=== PATIENT | female | born 1935 | race Caucasian/White ===

== ENCOUNTER 2021-03-31 18:04 | Emergency (ER) | payer MEDICARE, BC ==
[2021-03-31] MEDS ORDERED: Ondansetron 4 MG Tab.DIS PO ONE (18:05)
[2021-03-31] MEDS ORDERED: Sodium Chloride 0.9% 1,000 ML IV ONE (19:14)
[2021-03-31] MEDS ORDERED: Ondansetron 4 MG/2 ML SDV IVPUSH ONE (19:14)
[2021-03-31 19:45] LABS: CORONAVIRUS COVID-19 NAA NEGATIVE (NEGATIVE)
[2021-03-31 20:11] LABS: ANION GAP 14.8 mEq/L (7-13)
[2021-03-31] MEDS ORDERED: Iopamidol 612 MG/ML 100 ML Bottle IVPUSH ONE (20:18)
[2021-03-31] MEDS ORDERED: Loperamide 2 MG Cap PO ONE (21:40)
[2021-03-31] MEDS ORDERED: Carvedilol 6.25 MG Tab PO ONE (22:21)
[2021-03-31] MEDS ORDERED: lamoTRIgine 100 MG Tab PO ONE (22:24)
[2021-03-31] MEDS ORDERED: Ondansetron 4 MG Tab.DIS ONE (23:00)
== END 2021-03-31 22:50 | disposition home or self-care (01) ==
LOC: DL.ED 18:04
DX: K52.9 Noninfective gastroenteritis and colitis, unspecified (principal); R11.14 Bilious vomiting; E78.00 Pure hypercholesterolemia, unspecified; I10 Essential (primary) hypertension; E03.9 Hypothyroidism, unspecified; Z88.5 Allergy status to narcotic agent; Z79.899 Other long term (current) drug therapy; Z20.822 Contact with and (suspected) exposure to COVID-19
CPT/HCPCS: 0240U; 36415; 74177; 80053; 82150; 82272; 83605; 83690; 83735; 83880; 85025; 85610; 87040; 93005; 96374; 99284-25; A9270-GY; J2405; J7030; Q9967

== ENCOUNTER 2022-12-14 07:02 | Day surgery (SDC) | payer MEDICARE, BC ==
[~2022-12-14 07:02] MED LIST: Acetaminophen 325 MG Tab PO PRN; Acetaminophen/Codeine 300-30 MG Tab PO PRN; Cataract Ophth Solution EYELF ONE; Moxifloxacin 0.5% Ophth Soln 3 ML Bottle EYELF ONE; Ondansetron 4 MG/2 ML SDV IVPUSH PRN; Phenylephrine 10% Ophth Soln 5 ML Bot EYELF PRN; Povidone-Iodine 5% Sterile Ophth Soln 30 ML Bottle EYELF ONE; Proparacaine 0.5% Ophth Soln 15 ML Bottle EYELF ONE; Sodium Chloride 0.9% 10 ML Syringe FLUSH PRN; Timolol Maleate 0.5% Ophth Soln 5 ML Bottle EYELF ONE; Tropicamide 1% Ophth Soln 15 ML Bottle EYELF ONE
[2022-12-14] MEDS ORDERED: Proparacaine 0.5% Ophth Soln 15 ML Bottle EYELF ONE (09:11)
[2022-12-14] MEDS ORDERED: Povidone-Iodine 5% Sterile Ophth Soln 30 ML Bottle EYELF ONE (09:11)
[2022-12-14] MEDS ORDERED: Lidocaine 1% 30 ML SDV ONE (09:12)
[2022-12-14] MEDS ORDERED: Diclofenac Sodium 0.1% Ophth Soln 5 ML Bottle EYELF ONE (09:12)
[2022-12-14] MEDS ORDERED: Apraclonidine 0.5% Ophth Soln 5 ML Bot EYELF ONE (09:12)
[2022-12-14] MEDS ORDERED: Tobramycin 0.3% Ophth Oint 3.5 GM Tube EYELF ONE (09:12)
[2022-12-14] MEDS ORDERED: Balanced Salt Solution Ophth Irrig 500 ML Bottle IOCULAR ONE (09:12)
[2022-12-14] MEDS ORDERED: Vancomycin 500 MG SDV EYELF ONE (09:13)
[2022-12-14] MEDS ORDERED: Chondroitin Sulfate/Hyaluronate Sodium Ophth Inj 0.75 ML Syringe EYELF ONE (09:13)
== END 2022-12-14 10:00 | disposition home or self-care (01) ==
LOC: DL.SDS 07:02
PROVIDERS: ATTEND Ophthalmology
DX: H25.812 Combined forms of age-related cataract, left eye (principal); I10 Essential (primary) hypertension; E78.5 Hyperlipidemia, unspecified; E03.9 Hypothyroidism, unspecified; Z87.891 Personal history of nicotine dependence; Z79.899 Other long term (current) drug therapy; Z88.5 Allergy status to narcotic agent; Z88.0 Allergy status to penicillin; Z88.8 Allergy status to other drugs, medicaments and biological substances; Z85.3 Personal history of malignant neoplasm of breast
CPT/HCPCS: A9270-GY; J3370; J3490

== ENCOUNTER 2022-12-28 07:00 | Day surgery (SDC) | payer MEDICARE, BC ==
[~2022-12-28 07:00] MED LIST changes: -Cataract Ophth Solution EYELF ONE; +Cataract Ophth Solution EYERT ONE; -Moxifloxacin 0.5% Ophth Soln 3 ML Bottle EYELF ONE; +Moxifloxacin 0.5% Ophth Soln 3 ML Bottle EYERT ONE; -Phenylephrine 10% Ophth Soln 5 ML Bot EYELF PRN; +Phenylephrine 10% Ophth Soln 5 ML Bot EYERT PRN; -Povidone-Iodine 5% Sterile Ophth Soln 30 ML Bottle EYELF ONE; +Povidone-Iodine 5% Sterile Ophth Soln 30 ML Bottle EYERT ONE; -Proparacaine 0.5% Ophth Soln 15 ML Bottle EYELF ONE; +Proparacaine 0.5% Ophth Soln 15 ML Bottle EYERT ONE; -Timolol Maleate 0.5% Ophth Soln 5 ML Bottle EYELF ONE; +Timolol Maleate 0.5% Ophth Soln 5 ML Bottle EYERT ONE; -Tropicamide 1% Ophth Soln 15 ML Bottle EYELF ONE; +Tropicamide 1% Ophth Soln 15 ML Bottle EYERT ONE
[2022-12-28] MEDS ORDERED: Tobramycin 0.3% Ophth Oint 3.5 GM Tube EYERT ONE (08:23)
[2022-12-28] MEDS ORDERED: Lidocaine 1% 30 ML SDV ONE (08:23)
[2022-12-28] MEDS ORDERED: Povidone-Iodine 5% Sterile Ophth Soln 30 ML Bottle EYERT ONE (08:23)
[2022-12-28] MEDS ORDERED: Apraclonidine 0.5% Ophth Soln 5 ML Bot EYERT ONE (08:23)
[2022-12-28] MEDS ORDERED: Diclofenac Sodium 0.1% Ophth Soln 5 ML Bottle EYERT ONE (08:23)
[2022-12-28] MEDS ORDERED: Balanced Salt Solution Ophth Irrig 500 ML Bottle IOCULAR ONE (08:24)
[2022-12-28] MEDS ORDERED: Vancomycin 500 MG SDV EYERT ONE (08:24)
[2022-12-28] MEDS ORDERED: Chondroitin Sulfate/Hyaluronate Sodium Ophth Inj 0.75 ML Syringe EYERT ONE (08:24)
[2022-12-28] MEDS ORDERED: Proparacaine 0.5% Ophth Soln 15 ML Bottle EYERT ONE (08:24)
== END 2022-12-28 09:00 | disposition home or self-care (01) ==
LOC: DL.SDS 07:00
PROVIDERS: ATTEND Ophthalmology
DX: H25.811 Combined forms of age-related cataract, right eye (principal); I10 Essential (primary) hypertension; K21.9 Gastro-esophageal reflux disease without esophagitis; M19.90 Unspecified osteoarthritis, unspecified site; E03.9 Hypothyroidism, unspecified; Z90.49 Acquired absence of other specified parts of digestive tract; Z90.710 Acquired absence of both cervix and uterus; Z90.89 Acquired absence of other organs; Z87.891 Personal history of nicotine dependence; Z79.899 Other long term (current) drug therapy; Z79.82 Long term (current) use of aspirin; Z79.890 Hormone replacement therapy; Z88.8 Allergy status to other drugs, medicaments and biological substances; Z88.0 Allergy status to penicillin; Z88.5 Allergy status to narcotic agent
CPT/HCPCS: 00142; 99100; A9270-GY; J3370; J3490; V2787-GY